=== PATIENT | female | born 1995 | race African-American/Black ===

== ENCOUNTER 2023-02-10 00:20 | Emergency (ER) | payer MEDICAID, OTHER ==
[~2023-02-10] VITALS: Ht 152.4 cm; Wt 74.4 kg
[2023-02-10 00:33] VITALS: BP 131/80
== END 2023-02-10 03:08 | disposition left against medical advice (07) ==
LOC: ER 00:20
DX: Z53.21 Procedure and treatment not carried out due to patient leaving prior to being seen by health care provider (principal); I49.9 Cardiac arrhythmia, unspecified
CPT/HCPCS: 93005; 99281

== ENCOUNTER 2023-02-12 19:59 | Emergency (ER) | payer MEDICAID ==
[~2023-02-12] VITALS: Ht 152.4 cm; Wt 75.3 kg
[2023-02-12 20:06] VITALS: BP 156/108
[2023-02-12 20:43] LABS: BASOPHILS % 0.7 % (0.0-2.0); EOSINOPHILS % 1.5 % (0.0-5.0); HEMATOCRIT. 35.4 % (36.0-48.0); HEMOGLOBIN. 12.1 g/dL (12.0-16.0); LYMPHOCYTES % 48.1 % (20.0-50.0); MEAN CORPUSCULAR HEMOGLOBIN 31.4 pg (28.0-32.0); MONOCYTES % 6.7 % (2.0-8.0); PLATELET 301 x1000/uL (130-400); RED BLOOD CELL COUNT 3.85 mill/uL (4.2-5.4); RED CELL DISTRIBUTION WIDTH 12.4 % (11.6-14.6)
[2023-02-12 20:49] LABS: CHLORIDE 108 mEq/L (98-107)
== END 2023-02-12 22:00 | disposition left against medical advice (07) ==
LOC: ER 19:59
DX: Z53.21 Procedure and treatment not carried out due to patient leaving prior to being seen by health care provider (principal)
CPT/HCPCS: 36415; 71045; 80053; 83880; 84484; 85025; 93005; 99281

== ENCOUNTER 2025-05-11 17:36 | Emergency (ER) | payer MEDICAID ==
[~2025-05-11] VITALS: Ht 167.6 cm; Wt 80.0 kg
[2025-05-11 17:41] VITALS: TEMP 37.1; O2SAT 98
[2025-05-11 18:52] LABS: BASOPHILS % 0.7 % (0.0-2.0); EOSINOPHILS % 1.8 % (0.0-5.0); HEMATOCRIT. 35.4 % (36.0-48.0); HEMOGLOBIN. 11.7 g/dL (12.0-16.0); LYMPHOCYTES % 40.1 % (20.0-50.0); MEAN PLATELET VOLUME 8.2 fl (7.4-10.4); MONOCYTES % 7.3 % (2.0-8.0); NEUTROPHILS % 50.1 % (40.0-76.0); PLATELET 298 x1000/uL (130-400); RED BLOOD CELL COUNT 3.83 mill/uL (4.2-5.4); RED CELL DISTRIBUTION WIDTH 13.0 % (11.6-14.6)
[2025-05-11 19:04] LABS: CREATININE 0.9 mg/dL (0.6-1.0)
[2025-05-11 19:05] LABS: UREA NITROGEN BLOOD 16 mg/dL (9-23)
[2025-05-11 20:26] LABS: ETHANOL BLOOD < 10 mg/dL (<10)
[2025-05-11 20:27] LABS: TROPONIN I HIGH SENSITIVITY < 4 ng/L (3.0-34)
[2025-05-11 20:28] LABS: ASPARTATE AMINOTRANSFERASE 28 IU/L (<34); BILIRUBIN DIRECT 0.1 mg/dL (<=3.0); BILIRUBIN TOTAL 0.4 mg/dL (0.1-1.0); PROTEIN TOTAL 6.7 g/dL (6.0-8.3)
[2025-05-11 20:38] LABS: HCG SCREEN NEGATIVE
[2025-05-11] MEDS: ONDANSETRON HCL 4MG/2ML INJ IV STA (21:22)
[2025-05-11] MEDS: SODIUM CHLORIDE 0.9% 1,000 ML IV ONE (21:22)
[2025-05-12 00:05] VITALS: BP 140/90; PULSE 75; RESP 16; O2SAT 99
== END 2025-05-12 00:08 | disposition home or self-care (01) ==
LOC: ER 17:36
DX: R07.89 Other chest pain (principal); R10.32 Left lower quadrant pain; I10 Essential (primary) hypertension; F41.9 Anxiety disorder, unspecified; Z98.890 Other specified postprocedural states; Z79.899 Other long term (current) drug therapy; Z90.710 Acquired absence of both cervix and uterus
CPT/HCPCS: 80076; 80048; 80320; 84703; 83690; 85025; 84484; 36415; 71045; 93005; 96361; 96374; 99285; J2405; J7030; Z7610 ×2; 96375; G0480